=== PATIENT | male | born 1960 | race Caucasian/White ===

== ENCOUNTER 2020-08-01 06:24 | Outpatient (REF) | payer OTHER, SELFPAY | END 2020-08-01 06:25 | disposition home or self-care (01) | LOC: HO.LAB 06:24 | PROVIDERS: PCP Internal Medicine; Visit Provider Internal Medicine | DX: Z20.828 Contact with and (suspected) exposure to other viral communicable diseases (principal) | CPT/HCPCS: C9803; U0003 ==

== ENCOUNTER 2020-09-21 06:47 | Outpatient (REF) | payer OTHER, SELFPAY | END 2020-09-21 06:48 | disposition home or self-care (01) | LOC: HO.LAB 06:47 | PROVIDERS: Visit Provider Internal Medicine | DX: Z20.822 Contact with and (suspected) exposure to COVID-19 (principal) | CPT/HCPCS: 36415; C9803; U0003; U0005 ==

== ENCOUNTER 2020-09-29 11:15 | Outpatient (REF) | payer OTHER, SELFPAY | END 2020-09-29 11:16 | disposition home or self-care (01) | LOC: HO.LAB 11:15 | PROVIDERS: PCP Internal Medicine; Visit Provider Internal Medicine | DX: Z20.822 Contact with and (suspected) exposure to COVID-19 (principal) | CPT/HCPCS: 36415; C9803; U0003; U0005 ==

== ENCOUNTER 2023-08-11 21:27 | Emergency (ER) | payer OTHER, SELFPAY ==
--- NOTE | ~2023-08-11 | XR_ITS ---
EXAMINATION: PORTABLE CHEST 1 VIEW CLINICAL INFORMATION: cough. COMPARISON: No recent pertinent prior studies are available for comparison. TECHNIQUE: Portable frontal view of the chest was obtained. FINDINGS: Lungs well-expanded. Minimal increased markings in the medial right lung base partially obscuring the right heart border. Early right middle lobe infiltrate cannot be excluded. No significant effusion, edema, or pneumothorax. Cardiac and mediastinal silhouettes within normal limits for size. Bone anchors in the right humeral head. XR/XR chest 1V IMPRESSION: Minimal increased markings in the medial right lung base partially obscuring the right heart border. Early right middle lobe infiltrate cannot be excluded.
[2023-08-11 21:37] VITALS: BP 140/79; PULSE 102; RESP 18; TEMP 36.7; O2SAT 96; BMI 30.7
[2023-08-11 23:30] LABS: Influenza A PCR NEGATIVE (Negative); Influenza B PCR NEGATIVE (Negative); Resp Syncy Virus RNA Qual PCR POSITIVE (Negative); SARS COV2 PCR INHOUSE NEGATIVE (Negative)
[2023-08-12 00:01] VITALS: BP 138/71; PULSE 94; RESP 18; TEMP 36.8; O2SAT 98
--- NOTE | 2023-08-12 00:19 | ED.URI ---
HPI - URI/Sore Throat General Chief Complaint: Upper Respiratory Symptoms Stated Complaint: congested cough,wheezing Time Seen by Provider: 08/12/23 00:07 Source: patient and family ( spouse) Mode of arrival: ambulatory Limitations: no limitations History of Present Illness HPI Narrative: 63-year-old male came in for evaluation of coughing, shortness of breath, body ache, fever, chills, chest soreness with coughing. Symptoms started about week ago then patient went on a cruise came back worse with his symptoms, patient's biggest concern today is coughing. Patient is none smoker. Related Data Allergies Allergy/AdvReac Type Severity Reaction Status Date / Time shellfish derived Allergy Severe THROAT Unverified 04/28/20 14:43 [SHELLFISH DERIVED] CLOSING AND DIFF BREATHING, tramadol [TRAMADOL] Allergy Intermediate NAUSEA AND Unverified 04/28/20 14:43 VOMITING codeine [CODEINE] Allergy Mild NAUSEA AND Unverified 04/28/20 14:43 VOMITING Review of Systems Review of Systems: all other systems are reviewed and are negative Constitutional: Reports as per HPI and Reports no additional constitutional complaints Eyes: Reports as per HPI and Reports no additional eye complaints Reports system reviewed and no additional complaints, except as documented Cardiovascular: Reports as per HPI and Reports no additional cardiovascular complaints Respiratory: Reports as per HPI and Reports no additional respiratory complaints Gastrointestinal: Reports as per HPI and Reports no additional gastrointestinal complaints Genitourinary: Reports no additional female genitourinary complaints Musculoskeletal: Reports no additional musculoskeletal complaints Skin/Breast: Reports system reviewed and no additional complaints, except as docu Psychiatric: Reports no additional psychiatric complaints Endocrine: Reports no additional endocrine complaints Hematologic/Lymphatic: Reports no additional hematologic/lymphatic complaints Allergic/Immunologic: Reports no additional allergic/immunologic complaints Reports system reviewed and no additional complaints, except as documented and Reports Abnormal speech present [facility] Social History Social History Advance Directives: No Advance Directives Information Provided: Yes Physical Exam Vital Signs: Vital Signs: Last Vital Signs Temp 98.2 F 08/12/23 00:01 Pulse 94 08/12/23 00:01 Resp 18 08/12/23 00:01 BP 138/71 08/12/23 00:01 Pulse Ox 98 08/12/23 00:01 O2 Del Method Room Air 08/12/23 00:01 BMI result Body Mass Index 30.7 Vital signs have been reviewed and appear to be correct. Blood pressure elevated. Heart rate normal. Respiratory rate normal. Temperature normal. Oxygen saturation normal. Appearance: Alert. Oriented X3. No acute distress. Head: Normal external exam. Normocephalic. Atraumatic. No Coreas signs noted. No raccoon eyes noted Eyes: PERRLA. EOMI. Conjunctiva and sclera normal. Eyelids normal. ENT: TM's Normal. Pharynx normal. Uvula midline. Moist mucous membranes. No trismus noted. No drooling noted. No muffled voice noted. Neck: Normal inspection. Neck supple. FROM. No adenopathy. Thyroid Normal. No meningeal signs. No neck mass noted. CVS: Normal heart rate and rhythm. Heart sound normal. No murmurs noted. Pulses normal throughout. Respiratory: No respiratory distress. Painless inspiration. Breath sounds normal. No wheezes/rales/rhonchi noted. Chest nontender. No accessory muscle usage noted or decreased air movement noted. Abdomen: Soft and nontender. Bowel sounds normal in all 4 quadrants. No distention noted. No organomegaly noted. No visible injury noted. Back: No CVA tenderness. Full range of motion noted. Skin: Skin warm and dry. Normal skin color. Normal skin turgor. No rashes/lesions/lacerations noted. Extremities: No lower extremity edema. Extremities exhibit normal range of motion. Extremities nontender. Neuro: Oriented X 3. Cranial nerve exam: II-XII are grossly intact No motor deficit. No sensory deficit. Reflexes normal. Course Reevaluation(s) Reevaluation #1: 63-year-old male with RSV and possible early pneumonia on the x-ray No hypoxia on room air. Start the patient on Z-Laz and short course of prednisone with coughing medication. Time: 00:23 Medical Decision Making Differential Diagnosis Differential Diagnoses: The differential diagnosis associated with the presentation includes ( RSV, COVID, influenza, pneumonia, pneumothorax, pleural effusion, hypoxia.) Admission/Observation Consideration of admission/observation: Escalation of care including admission/observation considered Lab Data MDM Lab Attestation statement: I reviewed the patient's lab results. Labs: Lab Results 08/11/23 Range/Units 22:46 Influenza Type A (PCR) NEGATIVE (Negative) Influenza Type B (PCR) NEGATIVE (Negative) RSV RNA Qual (PCR) POSITIVE A (Negative) SARS-CoV-2 RNA (RT-PCR) NEGATIVE (Negative) Independent Interpretation I performed an independent interpretation of an: Plain X-Ray ( Chest:Minimal increased markings in the medial right lung base partially obscuring the right heart border. Early right middle lobe infiltrate cannot be excluded. ) Radiology Impression Discussion of test interpretation with radiology: I have reviewed the radiologist's reading. Discharge Plan Discharge Clinical Impression: Pneumonia, Acute bronchitis due to respiratory syncytial virus Patient Disposition: Home, Self-Care Instructions: Respiratory Syncytial Virus (ED)
[2023-08-12] MEDS: Azithromycin 500 MG TABLET PO (00:35)
[2023-08-12] MEDS: predniSONE 20 MG TABLET 40 MG PO (00:35)
[2023-08-12] MEDS: guaiFENesin 200 MG/10 ML 10 ML LIQUID PO (00:35)
== END 2023-08-12 00:43 | disposition home or self-care (01) ==
PROVIDERS: Emergency Provider Emergency Medicine; PCP Internal Medicine
DX: J21.0 Acute bronchiolitis due to respiratory syncytial virus (principal); J18.9 Pneumonia, unspecified organism; Z20.822 Contact with and (suspected) exposure to COVID-19; Z20.828 Contact with and (suspected) exposure to other viral communicable diseases
CPT/HCPCS: 0241U; 71045; 99283; 99284